=== PATIENT | female | born 1945 | race Caucasian/White ===

== ENCOUNTER 2016-12-26 09:11 | Inpatient (IN) | payer MEDICARE, MEDICAID ==
[~2016-12-26] VITALS: Ht 167.6 cm; Wt 72.6 kg
[2016-12-26 08:00] VITALS: BP 128/73
[~2016-12-26 09:11] MED LIST: BUSP5TAB3 PO; DEXL60CA3 PO; DILT240C88 PO; ESCI10TA PO; IBUP-1955 PO; LORA1TAB82 PO; MEMA10TA PO; OLME1TAB28 PO; RIVA10TA PO; ROSU10TA PO
--- NOTE | 2016-12-26 09:16 | NUR ---
[id number] FROM HOME: PALPITATIONS, TACHYCARDIA, NAD NOTED, VSS, SKIN WARM AND DRY, RESP EVEN AND UNLABORED, AA0 X4, PUT PT ON MONITOR AND MONITOR, MD AT BS FOR EVAL.
[2016-12-26] MEDS ORDERED: LORAZEPAM INJ 2 MG/ML VIAL ONE (09:21)
[2016-12-26] MEDS ORDERED: DILTIAZEM HCL 25 MG IV ONE (09:21)
[2016-12-26] MEDS ORDERED: DILTIAZEM HCL IV 125 MG in IV D5W 100 ML IV ONE (09:30)
[2016-12-26] MEDS ORDERED: IV NS 0.9% 500 ML BAG IV ONE (09:30)
[2016-12-26] MEDS ORDERED: LORAZEPAM INJ 2 MG/ML VIAL IV ONE (09:30)
[2016-12-26] MEDS ORDERED: DILTIAZEM HCL 25 MG IV IVP ONE (09:30)
[2016-12-26 09:41] LABS: BASOPHILS % (AUTO) 0.8 % (0.0-2.0); EOSINOPHILS # (AUTO) 0.1 /CMM (0.0-0.7); HEMATOCRIT 40 % (33-45); HEMOGLOBIN 13.5 g/dL (11.5-14.8); LYMPHOCYTES # (AUTO) 1.8 /CMM (0.8-4.8); LYMPHOCYTES % (AUTO) 37.8 % (20.0-44.0); MEAN CORPUSCULAR HEMOGLOBIN 29 PG (26.0-33.0); MEAN CORPUSCULAR HGB CONC 34 g/dl (31.0-36.0); MEAN CORPUSCULAR VOLUME 85 fL (82-100); MONOCYTES # (AUTO) 0.2 /CMM (0.1-1.30); MONOCYTES % (AUTO) 5.1 % (2.0-12.0); NEUTROPHILS # (AUTO) 2.5 /CMM (1.8-8.9); NEUTROPHILS % (AUTO) 54.3 % (43.0-81.0); PLATELET COUNT (AUTO) 179 /CMM (150-450); RDW COEFFICIENT OF VARIATION 15.4 (11.5-15.0); RED BLOOD CELL COUNT(AUTO) 4.72 MIL/uL (4.0-5.2); WHITE BLOOD COUNT (AUTO) 4.7 K/uL (4.3-11.0)
[2016-12-26 09:51] LABS: CREATININE 0.8 mg/dL (0.6-1.3); POTASSIUM 3.5 mmol/L (3.5-5.1)
[2016-12-26 09:59] LABS: TROPONIN I 0.344 ng/mL (0.00-0.056)
[2016-12-26 10:09] LABS: INR 1.07 (0.87-1.13); PROTHROMBIN TIME 11.1 SECS (9.5-12.7)
--- NOTE | 2016-12-26 10:11 | NUR ---
PAGED DR SOLIS FOR ADMISSION
[2016-12-26] MEDS ORDERED: ASPIRIN 325 MG TABLET ONE (10:12)
[2016-12-26] MEDS ORDERED: ASPIRIN 325 MG TABLET PO ONE (10:30)
[2016-12-26] MEDS: busPIRone 5 MG TABLET PO SCH (11:30)
[2016-12-26] MEDS: ESCITALOPRAM OXALATE (10 MG) 10 MG TABLET PO SCH (11:30)
[2016-12-26] MEDS ORDERED: LORAZEPAM 1 MG TABLET PO PRN (11:30)
[2016-12-26] MEDS: DRONEDARONE HYDROCHLORIDE 400 MG TABLET PO SCH ×2 (11:30→17:27)
--- NOTE | 2016-12-26 11:35 | NUR ---
RN INITIAL NOTES PATIENT RECEIVED FROM ER. NO SOB OR DISTRESS NOTED AT THIS TIME. PATIENT DENIES CHEST OR GENERAL PAIN AT THIS TIME. PATIENT ORIENTED TO ROOM AND CALL LIGHT. BELONGINGS CHECKED AND ACCOUNTED FOR. HEART RATE ST 103 WITH BBB. BED IN A LOW POSITION, CALL LIGHT WITHIN PATIENT REACH. WILL CONTINUE TO MONITOR.
[2016-12-26] MEDS: MEMANTINE HCL 5 MG TABLET PO SCH (11:41)
[2016-12-26] MEDS: PANTOPRAZOLE 40 MG TABLET.DR PO SCH (11:58)
--- NOTE | 2016-12-26 11:59 | NUR ---
RN NOTES PT STATES "I ONLY WANT BLOOD PRESSURE MEDS NOW. THE REST TOMORROW." PT ALSO STATES SHE TOOK HER MORNING MEDICATIONS AND XARALTO. HOLDING ALL NON BP MEDS.
[2016-12-26 12:00] VITALS: BP_SYST 127; BP_SYST 141; BP_DIAS 77; BP_DIAS 78
[2016-12-26] MEDS: DILTIAZEM HCL CD 240 MG PO SCH (12:00)
[2016-12-26] MEDS: METOPROLOL TARTRATE 50 MG TABLET PO SCH ×2 (12:00→17:27)
[2016-12-26 12:43] LABS: THYROID STIMULATING HORMONE 0.807 uIU/mL (0.358-3.74)
[2016-12-26] MEDS ORDERED: NITROGLYCERIN 0.4 MG/TAB BOTTLE SL PRN (13:00)
[2016-12-26] MEDS ORDERED: MAG HYDROX/AL HYDROX/SIMETH 30 ML UDC PO PRN (13:00)
[2016-12-26] MEDS ORDERED: Z GUARD REMEDY 2 OZ OINT TP PRN (13:00)
[2016-12-26] MEDS ORDERED: ZOLPIDEM TARTRATE 5 MG TABLET PO PRN (13:00)
[2016-12-26] MEDS ORDERED: MAGNESIUM HYDROXIDE 30 ML UDC PO PRN (13:00)
[2016-12-26] MEDS ORDERED: HYDROCODONE/APAP 5/325MG 1 EACH TABLET PO PRN (13:00)
[2016-12-26] MEDS ORDERED: ONDANSETRON HCL/PF 4 MG/2 ML VIAL IVP PRN (13:00)
[2016-12-26] MEDS ORDERED: ACETAMINOPHEN 325 MG TABLET PO PRN (13:00)
[2016-12-26] MEDS ORDERED: MORPHINE SULFATE INJ 2 MG/ML DISP.SYRIN IV PRN (13:00)
[2016-12-26 13:17] LABS: MAGNESIUM 1.9 mg/dL (1.8-2.4)
[2016-12-26 16:00] VITALS: BP 118/80
[2016-12-26] MEDS ORDERED: RIVAROXABAN 10 MG TABLET PO SCH (17:00)
--- NOTE | 2016-12-26 19:04 | NUR ---
RN CLOSING NOTES NO SIGNIFICANT CHANGES IN PATIENT CONDITION THROUGHOUT THE SHIFT. NO SOB OR DISTRESS NOTED AT THIS TIME. PATIENT DENIES PAIN. HEART RATE SR IN THE 90'S WITH BBB. BED IN A LOW POSITION, CALL LIGHT WITHIN PATIENT REACH. WILL ENDORSE FOR SUSAN.
--- NOTE | 2016-12-26 19:30 | NUR ---
RN NOTE; RECEIVED PT IN BED AWAKE AND ALERT, BREATHING EVENLY. NO SOB. NAD. SKIN WARM AND DRY. NO C/O PAIN OR DISCOMFORT. NO CP. SR W/ 1ST DEGREE AV BLOCK ON TELE MONITOR, NEEDS ATTENDED .BED LOW LOCKED. CALL LIGHT WITHIN REACH. WILL CONT TO MONITOR .
[2016-12-26 20:00] VITALS: BP 97/64
[2016-12-26] MEDS ORDERED: Medication Not On Formulary EA (Rosuvastatin Calcium (Crestor) 10 MG) PO SCH (22:00)
[2016-12-26] MEDS ORDERED: ATORVASTATIN 10 MG TABLET PO SCH (22:00)
[2016-12-26 23:54] VITALS: BP 107/63
[2016-12-27] VITALS: BP 107/63
[2016-12-27] MEDS: METOPROLOL TARTRATE 50 MG TABLET PO SCH ×2 (00:14→05:52)
[2016-12-27 04:00] VITALS: BP 139/82
--- NOTE | 2016-12-27 06:15 | NUR ---
RN NOTE; PT IN BED AWAKE AND RESPONSIVE. BREATHING EVENLY. NO SOB. NAD. NO ACUTE EVENT DURING THE NIGHT. ON ONGOING HEART MONITORING . READING SR W/1ST DEGREE AV BLOCK. NO C/O PAIN OR DISCOMFORT. DENIED CHEST PAIN. NEEDS ATTENDED. ASSISTED W/ ADLS. CALL LIGHT WITHIN REACH. WILL CONT TO MONITOR AND WILL ENDORSE TO AM SHIFT FOR SUSAN.
[2016-12-27 06:33] LABS: BASOPHILS # (AUTO) 0.1 /CMM (0.0-0.2); EOSINOPHILS # (AUTO) 0.2 /CMM (0.0-0.7); EOSINOPHILS % (AUTO) 3.5 % (0.0-6.0); HEMATOCRIT 37 % (33-45); HEMOGLOBIN 12.6 g/dL (11.5-14.8); LYMPHOCYTES # (AUTO) 2.4 /CMM (0.8-4.8); LYMPHOCYTES % (AUTO) 43.3 % (20.0-44.0); MEAN CORPUSCULAR HEMOGLOBIN 29 PG (26.0-33.0); MEAN CORPUSCULAR HGB CONC 34 g/dl (31.0-36.0); MEAN CORPUSCULAR VOLUME 86 fL (82-100); MONOCYTES # (AUTO) 0.4 /CMM (0.1-1.30); MONOCYTES % (AUTO) 6.5 % (2.0-12.0); NEUTROPHILS # (AUTO) 2.5 /CMM (1.8-8.9); NEUTROPHILS % (AUTO) 45.7 % (43.0-81.0); PLATELET COUNT (AUTO) 191 /CMM (150-450); RDW COEFFICIENT OF VARIATION 15.4 (11.5-15.0); RED BLOOD CELL COUNT(AUTO) 4.32 MIL/uL (4.0-5.2); WHITE BLOOD COUNT (AUTO) 5.4 K/uL (4.3-11.0)
[2016-12-27 06:50] LABS: ALBUMIN 3.6 g/dL (3.4-5.0); BILIRUBIN,TOTAL 0.4 mg/dL (0.2-1.0); CALCIUM, SERUM 9.5 mg/dL (8.5-10.1); CREATININE 0.8 mg/dL (0.6-1.3); PHOSPHORUS 3.9 mg/dL (2.5-4.9); POTASSIUM 3.5 mmol/L (3.5-5.1)
[2016-12-27 06:53] LABS: TROPONIN I 0.266 ng/mL (0.00-0.056)
--- NOTE | 2016-12-27 07:55 | NUR ---
INSERTER OPERATOR OPENING NOTE PATIENT IS ALERT AND ORIENTED x4. NO PAIN AT THIS TIME. NO SOB OR DISTRESS NOTED. CALL LIGHT WITHIN REACH. SAFETY MEASURES IMPLEMENTED. ABLE TO COMMUNICATE NEEDS. TELE MONITOR-SR WITH 1 DEGREE AV BLOCK. AMBULATORY WITH ASSISTANCE. CARDIAC DIET. LEFT HAND INTACT AND PATENT NO REDNESS NO SWELLING NOTED. PENDING LABS THIS MORNING. AWAITING PHYSICAL THERAPY EVALUATION. WILL CONTINUE TO MONITOR
[2016-12-27 08:00] VITALS: BP 105/61
[2016-12-27] MEDS: ESCITALOPRAM OXALATE (10 MG) 10 MG TABLET PO SCH (08:48)
[2016-12-27] MEDS: busPIRone 5 MG TABLET PO SCH (08:48)
[2016-12-27] MEDS: PANTOPRAZOLE 40 MG TABLET.DR PO SCH (08:48)
[2016-12-27] MEDS: MEMANTINE HCL 5 MG TABLET PO SCH (08:48)
[2016-12-27] MEDS: DILTIAZEM HCL CD 240 MG PO SCH (08:50)
[2016-12-27] MEDS: DRONEDARONE HYDROCHLORIDE 400 MG TABLET PO SCH (08:57)
[2016-12-27] MEDS ORDERED: RIVAROXABAN 10 MG TABLET PO SCH (09:00)
[2016-12-27] MEDS ORDERED: ASPIRIN EC 81 MG TABLET.DR PO SCH (09:00)
[2016-12-27] MEDS ORDERED: HCTZ PO SCH (09:00)
[2016-12-27] MEDS ORDERED: AMLODIPINE PO SCH (09:00)
[2016-12-27] MEDS ORDERED: OLMESARTAN MED PO SCH (09:00)
--- NOTE | 2016-12-27 12:38 | NUR ---
CHEMISTRY INSTRUCTOR NOTE PATIENT IS ALERT AND ORIENTED x4. NO PAIN AT THIS TIME. NO SOB OR DISTRESS NOTED. CALL LIGHT WITHIN REACH AT ALL TIMES. SAFETY MEASURES IMPLEMENTED. ABLE TO COMMUNICATE NEEDS. AMBULATORY WITH ASSISTANCE. LEAVING TO HOME WITH FAMILY VIA PRIVATE CAR. ALL BELONGINGS WITH PATIENT UPON DISCHARGE AND ACCOUNTED FOR. IV REMOVED, SKIN INTACT. FOLLOW UP APPOINTMENT AT [facility] ON 01/03/17 AT 12:45. TO FOLLOW UP WITH DR. MCDONALD OUTPATIENT. ALL DISCHARGE INSTRUCTIONS GIVEN TO PATIENT, PATIENT ABLE TO RETURN VERBALIZATION FOR DISCHARGE INSTRUCTIONS. PATIENT REFUSED PNEUMONIA AND FLU VACCINE.
== END 2016-12-27 12:30 | disposition home or self-care (01) | DRG 281 ==
LOC: ER 09:13 → TELE 11:20
DX: I48.91 Unspecified atrial fibrillation (principal); I21.4 Non-ST elevation (NSTEMI) myocardial infarction; D68.59 Other primary thrombophilia; I10 Essential (primary) hypertension; F41.9 Anxiety disorder, unspecified; E78.5 Hyperlipidemia, unspecified; K21.9 Gastro-esophageal reflux disease without esophagitis; Z88.0 Allergy status to penicillin; Z79.01 Long term (current) use of anticoagulants
CPT/HCPCS: 36415; 71010-TC; 80048-TC; 80053-TC; 80061-TC; 82306; 83735-TC; 84100-TC; 84439-TC; 84443-TC; 84484-TC; 85025-TC; 85730-TC; 87081-TC; 93307-TC; J2060; J3490; J7060

== ENCOUNTER 2017-01-03 12:51 | Outpatient (CLI) | payer MEDICARE, MEDICAID ==
[2017-01-03 12:37] VITALS: BP 115/78
[~2017-01-03 12:51] MED LIST changes: +LORA-259 PO; -LORA1TAB82 PO
== END 2017-01-03 23:59 | disposition home or self-care (01) ==
LOC: MSC 12:51
PROVIDERS: ATTEND Internal Medicine
DX: I48.0 Paroxysmal atrial fibrillation (principal); I10 Essential (primary) hypertension; K21.9 Gastro-esophageal reflux disease without esophagitis; F32.9 Major depressive disorder, single episode, unspecified; F41.9 Anxiety disorder, unspecified; E78.5 Hyperlipidemia, unspecified; M19.90 Unspecified osteoarthritis, unspecified site; Z79.899 Other long term (current) drug therapy; Z95.2 Presence of prosthetic heart valve

== ENCOUNTER 2017-02-07 21:32 | Inpatient (IN) | payer MEDICARE, MEDICAID ==
[~2017-02-07] VITALS: Ht 167.6 cm; Wt 74.8 kg
--- NOTE | 2017-02-07 21:35 | NUR ---
TO BED 2 A 71 YO FEMALE PATIENT BB RA89 FROM HOME. "SHAKING & FLU SINCE THIS MORNING." PATIENT ALSO COMPLAINTS OF CHEST PRESSURE ABOUT 1.5 HOURS CORE PASTER. PATIENT IS AAOX4, NAD NOTED. VSS. PLACED ON CARDIAC AND VS MONITORING. GOWNED. COMFORT MEASURES RENDERED.
[2017-02-07] MEDS ORDERED: ASPIRIN 81 MG TAB.CHEW ONE (22:22)
[2017-02-07] MEDS ORDERED: ASPIRIN 325 MG TABLET PO ONE (22:30)
--- NOTE | 2017-02-07 22:35 | NUR ---
started a saline lock on the rac g18, blood drawn and sent to lab.
[2017-02-07 22:53] LABS: BASOPHILS % (AUTO) 0.8 % (0.0-2.0); EOSINOPHILS # (AUTO) 0.1 /CMM (0.0-0.7); EOSINOPHILS % (AUTO) 1.5 % (0.0-6.0); HEMATOCRIT 34 % (33-45); HEMOGLOBIN 11.8 g/dL (11.5-14.8); LYMPHOCYTES # (AUTO) 1.9 /CMM (0.8-4.8); LYMPHOCYTES % (AUTO) 36.2 % (20.0-44.0); MEAN CORPUSCULAR HEMOGLOBIN 30 PG (26.0-33.0); MEAN CORPUSCULAR HGB CONC 35 g/dl (31.0-36.0); MEAN CORPUSCULAR VOLUME 87 fL (82-100); MONOCYTES # (AUTO) 0.3 /CMM (0.1-1.30); MONOCYTES % (AUTO) 5.6 % (2.0-12.0); NEUTROPHILS # (AUTO) 2.9 /CMM (1.8-8.9); NEUTROPHILS % (AUTO) 55.9 % (43.0-81.0); PLATELET COUNT (AUTO) 174 /CMM (150-450); RDW COEFFICIENT OF VARIATION 15.4 (11.5-15.0); RED BLOOD CELL COUNT(AUTO) 3.92 MIL/uL (4.0-5.2); WHITE BLOOD COUNT (AUTO) 5.1 K/uL (4.3-11.0)
[2017-02-07 23:05] LABS: CALCIUM, SERUM 9.4 mg/dL (8.5-10.1); CREATININE 0.9 mg/dL (0.6-1.3); POTASSIUM 3.3 mmol/L (3.5-5.1)
[2017-02-07 23:10] LABS: INR 1.28 (0.87-1.13); PROTHROMBIN TIME 13.3 SECS (9.5-12.7)
[2017-02-07 23:14] LABS: TROPONIN I 0.044 ng/mL (0.00-0.056)
[2017-02-07] MEDS ORDERED: POTASSIUM CHLORIDE 20 MEQ TAB.PRT.SR PO ONE ×2 (23:30)
--- NOTE | 2017-02-07 23:39 | NUR ---
PT ASSIGNED TO 116-2
[2017-02-07] MEDS ORDERED: IV NS 0.9% 1,000 ML IV PRN (23:41)
[2017-02-08] MEDS ORDERED: Z GUARD REMEDY 2 OZ OINT TP PRN
[2017-02-08] MEDS ORDERED: HYDROCODONE/APAP 5/325MG 1 EACH TABLET PO PRN
[2017-02-08] MEDS ORDERED: MAGNESIUM HYDROXIDE 30 ML UDC PO PRN
[2017-02-08] MEDS ORDERED: ZOLPIDEM TARTRATE 5 MG TABLET PO PRN
[2017-02-08] MEDS ORDERED: ACETAMINOPHEN 325 MG TABLET PO PRN
[2017-02-08] MEDS ORDERED: LORAZEPAM 1 MG TABLET PO PRN
[2017-02-08] MEDS ORDERED: ONDANSETRON HCL/PF 4 MG/2 ML VIAL IVP PRN
[2017-02-08] MEDS ORDERED: MAG HYDROX/AL HYDROX/SIMETH 30 ML UDC PO PRN
--- NOTE | 2017-02-08 00:19 | NUR ---
Report given to Carlos GALEANO for admission and fausto.
[2017-02-08 00:30] VITALS: BP 120/74
[2017-02-08] MEDS ORDERED: busPIRone 5 MG TABLET ONE (00:32)
--- NOTE | 2017-02-08 00:33 | NUR ---
Transferred patient to tele floor via als protocol, no incident noted.
[2017-02-08 00:43] VITALS: BP 120/74
--- NOTE | 2017-02-08 00:58 | NUR ---
TELE 1 RN NOTE ADMITTED 71 YEARS OLD FEMALE FROM ER WITH THE DX OF NSTEMI, WEAKNESS AND ANXIETY BY DR SOLIS. PT IS A/A/O X 3, NO SOB, NO DISTRESS OR DISCOMFORT NOTED. DENIES PAIN. HANGED IVF NS @ 75 ML/HR, NO S/S OF INFILTRATION NOTED RAC # 18 G. ON TELE SR HR 72. ADMITTING ORDERS CHECKED. ORIENTED THE PT TO HER ROOM. SKIN INTACT. SIDE RAILS UP X 2 AND CALL LIGHT WITHIN REACH VSS. CONTINUE TO MONITOR HER.
[2017-02-08] MEDS: busPIRone 5 MG TABLET PO SCH ×3 (01:00→08:17)
[2017-02-08 04:00] VITALS: BP_SYST 149; BP_SYST 97; BP_DIAS 59; BP_DIAS 62
--- NOTE | 2017-02-08 06:45 | NUR ---
HEALTH AND SAFETY TECH NOTES PATIENT IN BED ASLEEP OBTUNDED, ON TELE SINUS RHYTHM WITH BBB HR 60 ON THE MONITOR, TRACH INTACT, ON VENT. JOANNA MIDLINE, IVF NS INFUSING AT 75ML/ HR. ON TELE SR HR 75. KEPT HER DRY CLEAN. ALL SIDE RAILS UP X2. WILL CONT TO MONITOR.
[2017-02-08 07:23] LABS: CALCIUM, SERUM 9.4 mg/dL (8.5-10.1); CREATININE 0.7 mg/dL (0.6-1.3); MAGNESIUM 1.9 mg/dL (1.8-2.4); PHOSPHORUS 3.2 mg/dL (2.5-4.9); POTASSIUM 3.5 mmol/L (3.5-5.1)
--- NOTE | 2017-02-08 07:44 | NUR ---
REST ROOM MATRON NOTES RECEIVED PT ON BED A/O X 4, NAUSEATED. ON RA TOLERATING WELL. NO SIN OF DISTRESS. IV ACCESS RAC #18 NO SIGN OF INFILTRATION. NS RUNNING @ 75CC/HR INFUSING WELL. HEAD OF BED ELEVATED. SIDE RAILS UP. WILL CONTINUE TO MONITOR PT CLOSELY.
[2017-02-08 07:58] LABS: BASOPHILS % (AUTO) 0.6 % (0.0-2.0); EOSINOPHILS # (AUTO) 0.1 /CMM (0.0-0.7); EOSINOPHILS % (AUTO) 2.5 % (0.0-6.0); HEMATOCRIT 33 % (33-45); HEMOGLOBIN 11.5 g/dL (11.5-14.8); LYMPHOCYTES # (AUTO) 2.4 /CMM (0.8-4.8); LYMPHOCYTES % (AUTO) 50.3 % (20.0-44.0); MEAN CORPUSCULAR HEMOGLOBIN 30 PG (26.0-33.0); MEAN CORPUSCULAR HGB CONC 35 g/dl (31.0-36.0); MEAN CORPUSCULAR VOLUME 86 fL (82-100); MONOCYTES # (AUTO) 0.3 /CMM (0.1-1.30); MONOCYTES % (AUTO) 5.8 % (2.0-12.0); NEUTROPHILS % (AUTO) 40.8 % (43.0-81.0); PLATELET COUNT (AUTO) 155 /CMM (150-450); RDW COEFFICIENT OF VARIATION 14.7 (11.5-15.0); RED BLOOD CELL COUNT(AUTO) 3.86 MIL/uL (4.0-5.2); WHITE BLOOD COUNT (AUTO) 4.8 K/uL (4.3-11.0)
[2017-02-08 08:00] VITALS: BP 123/91
[2017-02-08] MEDS ORDERED: LOSARTAN POTASSIUM 25 MG TABLET PO SCH (09:00)
[2017-02-08] MEDS ORDERED: DILTIAZEM HCL CD 240 MG PO SCH (09:00)
[2017-02-08] MEDS ORDERED: MEMANTINE HCL 5 MG TABLET PO SCH (09:00)
[2017-02-08] MEDS ORDERED: ESCITALOPRAM OXALATE (10 MG) 10 MG TABLET PO SCH (09:00)
--- NOTE | 2017-02-08 09:32 | NUR ---
EARLY CHILDHOOD AIDE CLASSROOM NOTES PT REFUSED LOSARTAN AND MEMANTINE. EXPLAINED THE RISK AND BENEFITS OF THE DRUG.
--- NOTE | 2017-02-08 11:41 | NUR ---
PLANT HEALTH CARE TECHNICIAN NOTES PT ORIENTED, EXPLAINED THE AMA THE RISK AND BENEFITS OF IT. INFORMED THE PHYSICIAN ABOUT THE AMA. INFORMED THE CHARGE NURSE. PT BAND REMOVED. IV ACCESS REMOVED . TELE MONITOR REMOVED . CHECKED THE VITAL SIGNS BEFORE SHE LEAVE.
[2017-02-08 12:00] VITALS: BP 116/60
[2017-02-08] MEDS ORDERED: RIVAROXABAN 10 MG TABLET PO SCH (17:00)
[2017-02-08] MEDS ORDERED: ATORVASTATIN 10 MG TABLET PO SCH (22:00)
== END 2017-02-08 12:30 | disposition left against medical advice (07) | DRG 310 ==
LOC: ER 21:35 → TELE-TD 23:52 → TELE1 02-08 00:21
DX: I48.91 Unspecified atrial fibrillation (principal); E78.5 Hyperlipidemia, unspecified; F41.9 Anxiety disorder, unspecified; I10 Essential (primary) hypertension; K21.9 Gastro-esophageal reflux disease without esophagitis; E87.6 Hypokalemia; Z79.01 Long term (current) use of anticoagulants; Z88.0 Allergy status to penicillin; R78.89 Finding of other specified substances, not normally found in blood
CPT/HCPCS: 36415; 71010-TC; 80048-TC; 83735-TC; 84100-TC; 84484-TC; 85025-TC; 85730-TC; 87081-TC; A4606; J2405; J7030; Z7610

== ENCOUNTER 2018-02-25 10:22 | Emergency (ER) | payer MEDICARE, MEDICAID ==
[~2018-02-25] VITALS: Ht 162.6 cm; Wt 73.9 kg
[~2018-02-25 10:22] MED LIST changes: -ROSU10TA PO; +ROSU10TA2 PO
--- NOTE | 2018-02-25 10:26 | NUR ---
BIB RA 72 YEAR OLD FEMALE FROM HOME C/O HEART PALPITATION, GENERALIZED WEAKNESS X 2 WEEKS. PATIENT STATED SEEN AT [facility] YESTERDAY FOR SAME REASON, THEN D/C HOME. ALERT AND OREINTED X4, BREATHING EVEN AND UNLABORED WITH NO DISTRESS NOTED. SKIN WARM TO TOUCH AND INTACT. AWAITING TO BE SEEN BY .
[2018-02-25 11:09] LABS: BASOPHILS % (AUTO) 0.7 % (0.0-2.0); EOSINOPHILS % (AUTO) 0.8 % (0.0-6.0); HEMATOCRIT 39 % (33-45); LYMPHOCYTES # (AUTO) 1.6 /CMM (0.8-4.8); LYMPHOCYTES % (AUTO) 23.2 % (20.0-44.0); MEAN CORPUSCULAR HGB CONC 34 g/dl (31.0-36.0); MEAN CORPUSCULAR VOLUME 87 fL (82-100); MONOCYTES # (AUTO) 0.3 /CMM (0.1-1.30); MONOCYTES % (AUTO) 5.1 % (2.0-12.0); NEUTROPHILS # (AUTO) 4.7 /CMM (1.8-8.9); NEUTROPHILS % (AUTO) 70.2 % (43.0-81.0); PLATELET COUNT (AUTO) 196 /CMM (150-450); RED BLOOD CELL COUNT(AUTO) 4.41 MIL/uL (4.0-5.2); WHITE BLOOD COUNT (AUTO) 6.7 K/uL (4.3-11.0)
[2018-02-25] MEDS ORDERED: METOPROLOL TARTRATE INJ 5 MG/5 ML AMPUL ONE (11:11)
[2018-02-25 11:21] LABS: CALCIUM, SERUM 9.3 mg/dL (8.5-10.1); CARBON DIOXIDE 29 mmol/L (21-32); CHLORIDE 102 mmol/L (98-107); CREATININE 0.9 mg/dL (0.6-1.3); GLUCOSE 148 mg/dL (74-106); POTASSIUM 3.1 mmol/L (3.5-5.1); SODIUM SERUM 140 mmol/L (136-145); UREA NITROGEN, BLOOD 24 mg/dL (7-18)
--- NOTE | 2018-02-25 11:26 | NUR ---
PATIENT VS ARE STABLE WILL CONTINUE TO MONITOR
[2018-02-25] MEDS ORDERED: METOPROLOL TARTRATE INJ 5 MG/5 ML AMPUL IVP ONE (11:30)
[2018-02-25 11:33] LABS: B-TYPE NATRIURETIC PEPTIDE 810 PG/ML (0-125)
[2018-02-25] MEDS ORDERED: ASPI-1169 PO (12:19)
[2018-02-25] MEDS ORDERED: RIVA10TA PO (12:19)
[2018-02-25] MEDS ORDERED: OMEP20TA20 PO (12:20)
[2018-02-25] MEDS ORDERED: METO25TA6 PO (12:20)
--- NOTE | 2018-02-25 12:40 | NUR ---
PATIENT REMAINS STABLE AT THIS TIME. NO DISTRESS NOTED.
--- NOTE | 2018-02-25 13:20 | NUR ---
Patient discharged to home in stable condition. Written and verbal after care instructions given. Patient verbalizes understanding of instruction. IV removed. Catheter intact and site benign. Pressure and 4x4 applied to site. No bleeding noted.
[2018-02-25 13:56] VITALS: BP 110/70
[2018-04-01] MEDS ORDERED: ASPI-1169 PO (10:57)
[2018-04-01] MEDS ORDERED: ROSU10TA2 PO (10:57)
== END 2018-02-25 13:57 | disposition home or self-care (01) ==
LOC: ER 10:25
DX: I48.91 Unspecified atrial fibrillation (principal); I10 Essential (primary) hypertension; K21.9 Gastro-esophageal reflux disease without esophagitis; F41.9 Anxiety disorder, unspecified; Z98.890 Other specified postprocedural states; Z88.0 Allergy status to penicillin; Z79.82 Long term (current) use of aspirin; Z79.01 Long term (current) use of anticoagulants; Z79.899 Other long term (current) drug therapy
CPT/HCPCS: 36415; 71045; 80048; 83880; 84484; 85025; 85730; 93005; 96374; 99284; A4606; J3490

== ENCOUNTER 2018-03-05 10:04 | Emergency (ER) | payer MEDICARE, MEDICAID ==
[~2018-03-05] VITALS: Ht 160 cm; Wt 74.4 kg
[~2018-03-05 10:04] MED LIST changes: +ASPI-1169 PO; -BUSP5TAB3 PO; -DEXL60CA3 PO; -DILT240C88 PO; -ESCI10TA PO; -MEMA10TA PO; +METO25TA6 PO; +OMEP20TA20 PO
--- NOTE | 2018-03-05 10:10 | NUR ---
AAOX3, BIBA RA 60 From Home Multiple complaints "SCOTT/Dizzy/Shakiness/Anxiety since 4am was seen in [place] and recently". SKIN IS WARM AND DRY. PLACED ON THE MONITOR. DR NOVAK AT FOR BRIAN.
[2018-03-05 10:23] LABS: BASOPHILS # (AUTO) 0.1 /CMM (0.0-0.2); BASOPHILS % (AUTO) 1.1 % (0.0-2.0); EOSINOPHILS % (AUTO) 3.3 % (0.0-6.0); HEMATOCRIT 37 % (33-45); HEMOGLOBIN 12.3 g/dL (11.5-14.8); LYMPHOCYTES # (AUTO) 2.1 /CMM (0.8-4.8); LYMPHOCYTES % (AUTO) 38.7 % (20.0-44.0); MEAN CORPUSCULAR HGB CONC 33 g/dl (31.0-36.0); MEAN CORPUSCULAR VOLUME 88 fL (82-100); MONOCYTES # (AUTO) 0.3 /CMM (0.1-1.30); MONOCYTES % (AUTO) 5.6 % (2.0-12.0); NEUTROPHILS # (AUTO) 2.8 /CMM (1.8-8.9); NEUTROPHILS % (AUTO) 51.3 % (43.0-81.0); PLATELET COUNT (AUTO) 185 /CMM (150-450); WHITE BLOOD COUNT (AUTO) 5.5 K/uL (4.3-11.0)
[2018-03-05] MEDS ORDERED: OMEP40CA37 PO (10:40)
[2018-03-05 10:48] LABS: CALCIUM, SERUM 9.9 mg/dL (8.5-10.1); CARBON DIOXIDE 27 mmol/L (21-32); CHLORIDE 103 mmol/L (98-107); CREATININE 0.9 mg/dL (0.6-1.3); GLUCOSE 152 mg/dL (74-106); POTASSIUM 3.1 mmol/L (3.5-5.1); SODIUM SERUM 139 mmol/L (136-145); UREA NITROGEN, BLOOD 15 mg/dL (7-18)
[2018-03-05 10:53] LABS: ALANINE AMINOTRANSFERASE 49 U/L (12-78); ALBUMIN 4.4 g/dL (3.4-5.0); ALKALINE PHOSPHATASE 209 U/L (46-116); ASPARTATE AMINOTRANSFERASE 20 U/L (15-37); BILIRUBIN,DIRECT 0.1 mg/dL (0.0-0.2); BILIRUBIN,TOTAL 0.3 mg/dL (0.2-1.0); TOTAL PROTEIN, SERUM 8.2 g/dL (6.4-8.2)
[2018-03-05] MEDS ORDERED: LORAZEPAM 0.5 MG TABLET PO ONE (11:30)
[2018-03-05] MEDS ORDERED: LORAZEPAM 0.5 MG TABLET ONE (12:02)
[2018-03-05 12:05] VITALS: BP 132/82
[2018-04-01] MEDS ORDERED: ROSU10TA2 PO (10:57)
[2018-04-01] MEDS ORDERED: ASPI-1169 PO (10:57)
== END 2018-03-05 12:06 | disposition home or self-care (01) ==
LOC: ER 10:09
DX: I48.91 Unspecified atrial fibrillation (principal); R51 Headache; I10 Essential (primary) hypertension; K21.9 Gastro-esophageal reflux disease without esophagitis; F41.9 Anxiety disorder, unspecified; Z95.818 Presence of other cardiac implants and grafts; Z88.0 Allergy status to penicillin; Z79.82 Long term (current) use of aspirin; Z79.899 Other long term (current) drug therapy
CPT/HCPCS: 36415; 70450-TC; 71045-TC; 80048-TC; 80076-TC; 84484-TC; 85025-TC; 85730-TC

== ENCOUNTER 2018-03-30 01:54 | Inpatient (IN) | payer MEDICARE, MEDICAID ==
[2018-03-30] VITALS (8 sets, daily range): BP systolic 103–139; BP diastolic 57–81
[~2018-03-30] VITALS: Ht 160 cm; Wt 72.6 kg
[~2018-03-30 01:54] MED LIST changes: -ASPI-1169 PO; -OMEP20TA20 PO; +OMEP40CA37 PO
--- NOTE | 2018-03-30 04:17 | NUR ---
METAL SPRAYER: [facility] ACCOMPANIED BY 2 fiber glass worker AND RN BY [facility] AMBULANCE. PER REPORT, PT CALLED 911 FROM HOME D/T EPISODE OF ANXIETY AND COMPLAINED OF LT. SIDE WEAKNESS. STROKE WORK-UP DONE FROM ANTHONY WT UNREMARKABLE CT RESULT, LABS WNL EXCEPT K=3.3 (REPLACED WT K-DUR 20MEQ X1 PO). WAS ALSO GIVEN ATIVAN 0.5MG VIA IV X 1 PER REPORT WT GOOD EFFECT. PT IS A/O X4, ON ROOM AIR WT NO ACUTE DISTRESS. NO C/O PAIN AT THIS TIME. NSR ON TELE MONITOR. AFEBRILE. COOPERATIVE AND PARTIAL SKIN CARE RENDERED. LEFT AC IV SITE INTACT AND SALINE LOCKED. HOB AT 35 DEGREES. SAFETY PRECAUTION NOTED. CALL LIGHT KEPT WITHIN REACH. PAGED DNP PT SITTER FOR ADMISSION ORDERS.
[2018-03-30] MEDS ORDERED: HYDROCODONE/APAP 5/325MG 1 EACH TABLET PO PRN (05:30)
[2018-03-30] MEDS ORDERED: MAG HYDROX/AL HYDROX/SIMETH 30 ML UDC PO PRN (05:30)
[2018-03-30] MEDS ORDERED: ACETAMINOPHEN 325 MG TABLET PO PRN (05:30)
[2018-03-30] MEDS ORDERED: LORAZEPAM 1 MG TABLET PO PRN (05:30)
[2018-03-30] MEDS ORDERED: ONDANSETRON HCL/PF 4 MG/2 ML VIAL IVP PRN (05:30)
[2018-03-30] MEDS ORDERED: MAGNESIUM HYDROXIDE 30 ML UDC PO PRN (05:30)
[2018-03-30] MEDS ORDERED: Z GUARD REMEDY 2 OZ OINT TP PRN (05:30)
--- NOTE | 2018-03-30 06:15 | NUR ---
BILLBOARD POSTER HELPER: REFUSED AM BASELINE LABS AT THIS TIME AND SAID A LOT OF BLOOD WAS DRAWN TODAY FROM [place] AND SHE STILL FEELS WEAK. EXPLAINED RISKS AND BENEFITS BUT STILL REFUSED. ASKED BOARD MILL SUPERVISOR TO COME BACK LATER AND WILL ENDORSE TO DAY SHIFT. NO SUSAN AT THIS TIME. NO ACUTE DISTRESS, NO C/O PAIN. SAFETY PRECAUTION NOTED.
[2018-03-30] MEDS: METOPROLOL TARTRATE 25 MG TABLET PO SCH ×2 (08:52→16:04)
[2018-03-30] MEDS: PANTOPRAZOLE 40 MG TABLET.DR PO SCH (08:52)
[2018-03-30] MEDS ORDERED: AMLODIPINE PO SCH (09:00)
[2018-03-30] MEDS ORDERED: HCTZ PO SCH (09:00)
[2018-03-30] MEDS ORDERED: OLMESARTAN MED PO SCH (09:00)
[2018-03-30] MEDS: HYDROCHLOROTHIAZIDE 25 MG TABLET PO SCH (09:00)
[2018-03-30] MEDS: AMLODIPINE BESYLATE 5 MG TABLET PO SCH (09:00)
[2018-03-30] MEDS: LOSARTAN POTASSIUM 50 MG TABLET PO SCH (09:00)
[2018-03-30 09:27] LABS: BASOPHILS % (AUTO) 0.9 % (0.0-2.0); EOSINOPHILS % (AUTO) 1.4 % (0.0-6.0); HEMATOCRIT 35 % (33-45); HEMOGLOBIN 11.8 g/dL (11.5-14.8); LYMPHOCYTES # (AUTO) 1.8 /CMM (0.8-4.8); LYMPHOCYTES % (AUTO) 36.4 % (20.0-44.0); MEAN CORPUSCULAR HGB CONC 34 g/dl (31.0-36.0); MEAN CORPUSCULAR VOLUME 86 fL (82-100); MONOCYTES # (AUTO) 0.3 /CMM (0.1-1.30); MONOCYTES % (AUTO) 5.2 % (2.0-12.0); NEUTROPHILS # (AUTO) 2.8 /CMM (1.8-8.9); NEUTROPHILS % (AUTO) 56.1 % (43.0-81.0); PLATELET COUNT (AUTO) 182 /CMM (150-450); RED BLOOD CELL COUNT(AUTO) 4.06 MIL/uL (4.0-5.2)
[2018-03-30 09:28] LABS: CALCIUM, SERUM 9.5 mg/dL (8.5-10.1); CARBON DIOXIDE 28 mmol/L (21-32); CHLORIDE 103 mmol/L (98-107); CREATININE 0.6 mg/dL (0.6-1.3); GLUCOSE 104 mg/dL (74-106); MAGNESIUM 1.9 mg/dL (1.8-2.4); PHOSPHORUS 3.1 mg/dL (2.5-4.9); POTASSIUM 3.4 mmol/L (3.5-5.1); SODIUM SERUM 140 mmol/L (136-145); UREA NITROGEN, BLOOD 14 mg/dL (7-18)
[2018-03-30 09:39] LABS: THYROID STIMULATING HORMONE 0.339 uIU/mL (0.358-3.74)
--- NOTE | 2018-03-30 11:00 | NUR ---
RN NOTE PT TROPONIN LEVEL REPORTED TO DR CHEN, HE ORDERED TO CHECK IN Q6HX2, AND HE WILL TAKE CARE THE CARDIAC CONSULT. WILL CARRY OUT ORDERS. PT VS STABLE, DENIES PAIN.
--- NOTE | 2018-03-30 13:15 | NUR ---
RN NOTE PT TRANSFERRED TO 3WEST REPORT GIVEN TO WALESKA ELMORE FOR SUSAN.
--- NOTE | 2018-03-30 13:25 | NUR ---
TELE/RN OPENING NOTE THE PATIENT ALERT AND ORIENTED X4. IN ROOM AIR AND DENIES SOB. RESPIRATION REGULAR AND UNLABORED. DENIES PAIN. THE PATIENT IN NO APPARENT DISTRESS. EXTERNAL TELE BOX READING SR 62. LAC G 20 PATENT AND SALINE LOCKED. BED LOW AND LOCKED. SIDE RAILS UP X2. CALL LIGHT WITHIN REACH. WILL CONTINUE TO MONITOR.
[2018-03-30] MEDS ORDERED: POTASSIUM CHLORIDE 20 MEQ TAB.PRT.SR PO ONE (16:00)
[2018-03-30] MEDS: RIVAROXABAN 10 MG TABLET PO SCH (16:09)
--- NOTE | 2018-03-30 18:50 | NUR ---
MS/RN NOTE THE PATIENT ALERT AND ORIENTED X4. PATIENT IS IN ROOM AIR AND SATURATION IS AT 98%. DENIES SOB. RESPIRATION REGULAR AND UNLABORED. DENIES PAIN. THE PATIENT IN NO APPARENT DISTRESS. LAC G 20 PATENT AND SALINE LOCKED. TELE BOX READING SHOWING SR 75. BED LOW AND LOCKED. SIDE RAILS UP X3. CALL LIGHT WITHIN REACH. WILL ENDORSE TO SPECIAL OFFICER.
--- NOTE | 2018-03-30 19:45 | NUR ---
RN OPENING NOTES RECEIVED REPORT FROM DAYSHIFT RN CATARINA. FOUND Pt ASLEEP, RESTING IN BED. PER RERORT Pt IS IS A/OX4, VERBAL, ABLE TO MAKE NEEDS KNOWN. ON TELE MONITOR; READING SR 63. IV ACCESS ON LAC #20G, SL. NO S/S OF ACUTE DISTRESS OR SOB NOTED. RESPIRATIONS EVEN AND UNLABORED. SAFETY MEASURES IN PLACE. BED LOW, LOCKED, HOB ELEVATED, SIDE RAILS UP, CALL LIGHT AND BEDSIDE TABLE WITHIN REACH. WILL CONTINUE TO MONITOR Pt's CONDITION AND SAFETY THROUGHOUT THE NIGHT.
[2018-03-30] MEDS: ATORVASTATIN 10 MG TABLET PO SCH (21:50)
[2018-03-30] MEDS ORDERED: Medication Not On Formulary EA (Rosuvastatin Calcium (Crestor) 10 MG) PO SCH (22:00)
[2018-03-31 00:50] VITALS: BP 113/68
[2018-03-31 04:56] VITALS: BP 108/65
--- NOTE | 2018-03-31 06:38 | NUR ---
RN CLOSING NOTES NO SIGNIFICANT CHANGES IN Pt's CONDITION. Pt REMAINS ASLEEP IN BED. RESPIRATIONS EVEN AND UNLABORED. EASILY AWAKENED BY NAME. NO S/S OF ACUTE DISTRESS OR SOB NOTED DURING THE NIGHT. ALL NEEDS MET AND ATTENDED TO. SAFETY MEASURES IN PLACE. BED LOW, LOCKED, HOB ELEVATED, SIDE RAILS UP, CALL LIGHT AND BEDSIDE TABLE WITHIN REACH. WILL ENDORSE TO DAYSHIFT RN FOR Pt'S SUSAN. Addendum: 03/31/18 at 0639 by LAI WATKINS RN TELE READING 1ST DEGREE BLOCK WITH PVC's 60
[2018-03-31 07:09] LABS: BASOPHILS % (AUTO) 0.9 % (0.0-2.0); EOSINOPHILS % (AUTO) 3.7 % (0.0-6.0); HEMATOCRIT 37 % (33-45); HEMOGLOBIN 12.4 g/dL (11.5-14.8); LYMPHOCYTES # (AUTO) 2.2 /CMM (0.8-4.8); LYMPHOCYTES % (AUTO) 43.3 % (20.0-44.0); MEAN CORPUSCULAR HGB CONC 34 g/dl (31.0-36.0); MEAN CORPUSCULAR VOLUME 86 fL (82-100); MONOCYTES # (AUTO) 0.3 /CMM (0.1-1.30); MONOCYTES % (AUTO) 6.3 % (2.0-12.0); NEUTROPHILS # (AUTO) 2.3 /CMM (1.8-8.9); NEUTROPHILS % (AUTO) 45.8 % (43.0-81.0); PLATELET COUNT (AUTO) 182 /CMM (150-450); RED BLOOD CELL COUNT(AUTO) 4.24 MIL/uL (4.0-5.2)
[2018-03-31 07:30] LABS: CALCIUM, SERUM 9.5 mg/dL (8.5-10.1); CARBON DIOXIDE 27 mmol/L (21-32); CHLORIDE 105 mmol/L (98-107); CREATININE 0.8 mg/dL (0.6-1.3); GLUCOSE 102 mg/dL (74-106); POTASSIUM 3.8 mmol/L (3.5-5.1); SODIUM SERUM 143 mmol/L (136-145); UREA NITROGEN, BLOOD 19 mg/dL (7-18)
[2018-03-31 07:47] LABS: CHOLESTEROL 278 mg/dL (<200); HDL CHOLESTEROL 68 mg/dL (40-60); LDL 190 mg/dL (0-99); TRIGLYCERIDES 102 mg/dL (30-150)
--- NOTE | 2018-03-31 07:53 | NUR ---
E LEARNING DESIGNER NOTES PATIENT RESTING INSIDE ROOM. AWAKE, ALERT AND ORIENTED X 4, VERBALLY RESPONSIVE AND RESPONDS TO VERBAL AND TACTILE STIMULI. BREATHING EVEN AND UNLABORED. NO ACUTE DISTRESS NOTED AT TIS TIME. PATIENT CALM AND RELAXED. CONTINUE WITH TELEMETRY, SCHOOL PSYCHOLOGY SPECIALIST IN PLACE. RATE OF 75 WITH 1ST DEGREE BLOCK WITH PVCs. MD AWARE. AWAITING CARDIAC CONSULT, PATIENT NPO AT THIS TIME. EXPLAINED NPO STATUS TO PATIENT AND PATIENT VERBALIZED UNDERSTANDING. WILL CONTINUE TO MONITOR. BED LOCKED AND IN LOW POSITION. BILATERAL UPPER SIDE RAILS UP AND LOCKED. CALL LIGHT WITHIN EASY REACH
[2018-03-31 08:00] VITALS: BP 133/70
[2018-03-31] MEDS: METOPROLOL TARTRATE 25 MG TABLET PO SCH ×2 (09:38→16:44)
[2018-03-31] MEDS: LOSARTAN POTASSIUM 50 MG TABLET PO SCH (09:38)
[2018-03-31] MEDS: HYDROCHLOROTHIAZIDE 25 MG TABLET PO SCH (09:39)
[2018-03-31] MEDS: PANTOPRAZOLE 40 MG TABLET.DR PO SCH (09:39)
[2018-03-31] MEDS: AMLODIPINE BESYLATE 5 MG TABLET PO SCH (09:40)
[2018-03-31] MEDS: ASPIRIN 81 MG TAB.CHEW PO SCH (11:37)
[2018-03-31 16:00] VITALS: BP 108/70
[2018-03-31] MEDS: RIVAROXABAN 10 MG TABLET PO SCH (16:44)
--- NOTE | 2018-03-31 18:41 | NUR ---
MS RN NOTES PATIENT RESTING INSIDE ROOM. AWAKE, ALERT AND ORIENTED, VERBALLY RESPONSIVE AND RESPONDS TO VERBAL AND TACTILE STIMULI. BREATHING EVEN AND UNLABORED. NO CHANGES IN LOC NOTED AT THIS TIME. ALL NURSING NEEDS ATTENDED AND MET. WILL ENDORSE TO INCOMING SHIFT. BED LOCKED AND IN LOW POSITION. BILATERAL UPPER SIDE RAILS UP AND LOCKED. CALL LIGHT WITHIN EASY REACH
--- NOTE | 2018-03-31 19:55 | NUR ---
RN OPENING NOTES RECEIVED REPORT FROM OSEASMNFT RNMARCELL. FOUND Pt AWAKE, RESTING IN BED. FAMILY VISITING AT BEDSIDE. RESPIRATIONS EVEN AND UNLABORED. NO S/S OF ACUTE DISTRESS OR SOB NOTED. Pt IS A/OX4, VERBAL, ABLE TO MAKE NEEDS KNOWN. IV ACCESS ON LAC #20G, SL. SAFETY MEASURES IN PLACE. BED LOW, LOCKED, HOB ELEVATED, SIDE RAILS UP, CALL LIGHT AND BEDSIDE TABLE WITHIN REACH. WILL CONTINUE TO MONITOR Pt's CONDITION AND SAFETY THROUGHOUT THE NIGHT.
[2018-03-31 20:00] VITALS: BP 105/65
[2018-03-31] MEDS: ATORVASTATIN 10 MG TABLET PO SCH (23:05)
[2018-04-01] MEDS: PANTOPRAZOLE 40 MG TABLET.DR PO SCH (06:54)
--- NOTE | 2018-04-01 06:55 | NUR ---
RN CLOSING NOTES NO SIGNIFICANT CHANGES IN Pt's CONDITION. Pt REMAINS STABLE PER BASELINE. Pt IS AWAKE, RESTING IN BED. RESPIRATIONS EVEN AND UNLABORED. NO S/S OF ACUTE DISTRESS OR SOB NOTED DURING THE NIGHT. ALL NEEDS MET AND ATTENDED TO. SAFETY MEASURES IN PLACE. BED LOW, LOCKED, HOB ELEVATED, SIDE RAILS UP, CALL LIGHT AND BEDSIDE TABLE WITHIN REACH. WILL ENDORSE TO DAYSHIFT RN FOR Pt'S SUSAN.
--- NOTE | 2018-04-01 07:00 | NUR ---
Pt IS AWAKE, RESTING IN BED. RESPIRATIONS EVEN AND UNLABORED. NO S/S OF ACUTE DISTRESS OR SOB NOTED AT THIS TIME. SAFETY MEASURES IN PLACE. BED LOW, LOCKED, HOB ELEVATED, SIDE RAILS UP, CALL LIGHT WITHIN REACH. WILL CONTINUE TO MONITOR
[2018-04-01 08:00] VITALS: BP 113/74
[2018-04-01] MEDS: HYDROCHLOROTHIAZIDE 25 MG TABLET PO SCH (09:00)
[2018-04-01] MEDS: ASPIRIN 81 MG TAB.CHEW PO SCH (09:27)
[2018-04-01] MEDS: LOSARTAN POTASSIUM 50 MG TABLET PO SCH (09:28)
[2018-04-01] MEDS: METOPROLOL TARTRATE 25 MG TABLET PO SCH (09:29)
[2018-04-01 09:30] VITALS: BP 113/74
[2018-04-01] MEDS: AMLODIPINE BESYLATE 5 MG TABLET PO SCH (09:30)
[2018-04-01 09:46] LABS: BASOPHILS # (AUTO) 0.1 /CMM (0.0-0.2); BASOPHILS % (AUTO) 1.1 % (0.0-2.0); EOSINOPHILS % (AUTO) 3.1 % (0.0-6.0); HEMATOCRIT 38 % (33-45); HEMOGLOBIN 12.4 g/dL (11.5-14.8); LYMPHOCYTES # (AUTO) 1.8 /CMM (0.8-4.8); LYMPHOCYTES % (AUTO) 37.3 % (20.0-44.0); MEAN CORPUSCULAR HGB CONC 33 g/dl (31.0-36.0); MEAN CORPUSCULAR VOLUME 89 fL (82-100); MONOCYTES # (AUTO) 0.3 /CMM (0.1-1.30); MONOCYTES % (AUTO) 5.8 % (2.0-12.0); NEUTROPHILS # (AUTO) 2.5 /CMM (1.8-8.9); NEUTROPHILS % (AUTO) 52.7 % (43.0-81.0); PLATELET COUNT (AUTO) 169 /CMM (150-450); RED BLOOD CELL COUNT(AUTO) 4.28 MIL/uL (4.0-5.2); WHITE BLOOD COUNT (AUTO) 4.7 K/uL (4.3-11.0)
[2018-04-01 09:55] LABS: CALCIUM, SERUM 9.1 mg/dL (8.5-10.1); CARBON DIOXIDE 22 mmol/L (21-32); CHLORIDE 104 mmol/L (98-107); CREATININE 0.8 mg/dL (0.6-1.3); GLUCOSE 105 mg/dL (74-106); POTASSIUM 3.7 mmol/L (3.5-5.1); SODIUM SERUM 140 mmol/L (136-145); UREA NITROGEN, BLOOD 22 mg/dL (7-18)
[2018-04-01] MEDS ORDERED: ROSU10TA2 PO (10:57)
[2018-04-01] MEDS ORDERED: ASPI-1169 PO (10:57)
--- NOTE | 2018-04-01 12:25 | NUR ---
PT CLEARED BY MD FOR DISCHARGE TO HOME. PATIENT ALERT AND ORIENTED X4 , NO S/S DISTRESS, NO PAIN, NO SOB, VS ARE STABLE AND WITHIN NORMAL RANGE. IV LINE REMOVED , ID LINE REMOVED. PRESCRIPTION GIVEN TO PATIENT, EDUCATION PROVIDED , D/C INSTRUCTIONS PROVIDED. PT VERBALIZED UNDERSTANDING. HOME MEDICATIONS RETURNED TO PATIENT, ALL BELONGINGS REVIEWED AND VALUABLE LIST SIGNED. PATIENT SAFELY TRANSPORTED TO THE CAR ACCOMPANIED BY LOAN SUPERVISOR AND FAMILY MEMBER.
== END 2018-04-01 12:30 | disposition home or self-care (01) | DRG 69 ==
LOC: TELE1 04:00 → TELE 12:26 → MED 03-31 08:50
PROVIDERS: ADMIT Family Medicine; ATTEND Family Medicine
DX: G45.9 Transient cerebral ischemic attack, unspecified (principal); I21.A1 Myocardial infarction type 2; I10 Essential (primary) hypertension; E78.5 Hyperlipidemia, unspecified; E87.6 Hypokalemia; T50.2X5A Adverse effect of carbonic-anhydrase inhibitors, benzothiadiazides and other diuretics, initial encounter; R29.700 NIHSS score 0; K21.9 Gastro-esophageal reflux disease without esophagitis; I48.91 Unspecified atrial fibrillation; Y92.009 Unspecified place in unspecified non-institutional (private) residence as the place of occurrence of the external cause; Z79.01 Long term (current) use of anticoagulants
CPT/HCPCS: 36415; 70551-TC; 80048-TC; 80061-TC; 83735-TC; 84100-TC; 84439-TC; 84443-TC; 84484-TC; 85025-TC; 85730-TC; 87081-TC; 93307-TC; 93880-TC; G0378

== ENCOUNTER 2018-07-06 23:11 | Inpatient (IN) | payer MEDICARE, MEDICAID ==
[~2018-07-06] VITALS: Ht 160 cm; Wt 73.0 kg
[~2018-07-06 23:11] MED LIST changes: +ASPI-1169 PO
--- NOTE | 2018-07-06 23:40 | NUR ---
BIB SELF WITH . AAOX4. NAD NOTED, BREATHING IS EVEN AND UNLABORED. AMBULATORY. C/O LOWER BACK PAIN AND LEFT CHEST PAIN STARTED 3 DAYS AGO THAT IS WORST TODAY. PT STATES SENSATION IS ACHING AND BURNING WHICH IS AGGREVATED BY MOVEMENT AND UNABLE TO SLEEP D/T PAIN. RATES HER PAIN 5/10 PT DENIES N/V. PT TO ER BED 9. MD AT BEDSIDE FOR EVAL.
[2018-07-06] MEDS ORDERED: LORAZEPAM INJ 2 MG/ML VIAL ONE (23:49)
--- NOTE | 2018-07-06 23:53 | NUR ---
IV LINE OBTAINED ON R AC 20G. BLOOD DRAWN AND SENT TO LAB.
[2018-07-06 23:58] LABS: BASOPHILS # (AUTO) 0.1 /CMM (0.0-0.2); BASOPHILS % (AUTO) 1.1 % (0.0-2.0); EOSINOPHILS % (AUTO) 1.8 % (0.0-6.0); HEMATOCRIT 35 % (33-45); HEMOGLOBIN 12.1 g/dL (11.5-14.8); LYMPHOCYTES # (AUTO) 1.7 /CMM (0.8-4.8); LYMPHOCYTES % (AUTO) 30.1 % (20.0-44.0); MEAN CORPUSCULAR HGB CONC 34 g/dl (31.0-36.0); MEAN CORPUSCULAR VOLUME 85 fL (82-100); MONOCYTES # (AUTO) 0.4 /CMM (0.1-1.30); MONOCYTES % (AUTO) 7.3 % (2.0-12.0); NEUTROPHILS # (AUTO) 3.4 /CMM (1.8-8.9); NEUTROPHILS % (AUTO) 59.7 % (43.0-81.0); PLATELET COUNT (AUTO) 187 /CMM (150-450); RED BLOOD CELL COUNT(AUTO) 4.15 MIL/uL (4.0-5.2); WHITE BLOOD COUNT (AUTO) 5.7 K/uL (4.3-11.0)
[2018-07-07] MEDS ORDERED: LORAZEPAM INJ 2 MG/ML VIAL IV ONE
--- NOTE | 2018-07-07 00:01 | NUR ---
EKG AT BEDSIDE+
[2018-07-07 00:05] LABS: CALCIUM, SERUM 9.7 mg/dL (8.5-10.1); CARBON DIOXIDE 30 mmol/L (21-32); CHLORIDE 105 mmol/L (98-107); CREATININE 0.7 mg/dL (0.6-1.3); GLUCOSE 141 mg/dL (74-106); POTASSIUM 3.8 mmol/L (3.5-5.1); SODIUM SERUM 144 mmol/L (136-145); UREA NITROGEN, BLOOD 18 mg/dL (7-18)
[2018-07-07 00:15] LABS: D-DIMER 0.19 mg/L(FEU (0.17-0.50)
[2018-07-07 00:18] LABS: B-TYPE NATRIURETIC PEPTIDE 226 PG/ML (0-125)
--- NOTE | 2018-07-07 00:41 | NUR ---
PT IS GOING TO 112-1
[2018-07-07] MEDS ORDERED: MORPHINE SULFATE INJ 2 MG/ML DISP.SYRIN IV PRN (01:00)
[2018-07-07] MEDS ORDERED: HYDROCODONE/APAP 5/325MG 1 EACH TABLET PO PRN (01:00)
[2018-07-07] MEDS ORDERED: IBUPROFEN 600 MG TABLET PO PRN (01:00)
[2018-07-07] MEDS ORDERED: Z GUARD REMEDY 2 OZ OINT TP PRN (01:00)
[2018-07-07] MEDS ORDERED: ONDANSETRON HCL/PF 4 MG/2 ML VIAL IVP PRN (01:00)
[2018-07-07] MEDS ORDERED: MAG HYDROX/AL HYDROX/SIMETH 30 ML UDC PO PRN (01:00)
[2018-07-07] MEDS ORDERED: NITROGLYCERIN 0.4 MG/TAB BOTTLE SL PRN (01:00)
[2018-07-07] MEDS ORDERED: LORAZEPAM 1 MG TABLET PO PRN (01:00)
[2018-07-07] MEDS ORDERED: ACETAMINOPHEN 325 MG TABLET PO PRN (01:00)
[2018-07-07] MEDS ORDERED: ZOLPIDEM TARTRATE 5 MG TABLET PO PRN (01:00)
[2018-07-07] MEDS ORDERED: MAGNESIUM HYDROXIDE 30 ML UDC PO PRN (01:00)
--- NOTE | 2018-07-07 01:22 | NUR ---
REPORT GIVEN TO WALESKA PERDOMO FOR SUSAN PT GOING TO 112-1
--- NOTE | 2018-07-07 01:47 | NUR ---
GLASS SETTER NOTE PATIENT RECEIVED IN [facility] FROM ER A/O X 4. ABLE TO WALK TO BED FROM [facility] WITH MINIMAL ASSISTANCE. PATIENT GAIT STEADY. PATIENT STATES SHE USES A CANE AT HOME. PATIENT O2 SATURATION 98% STATES SHE HAD IN ER BUT IT IS BETTER NOW. PATIENT DENIES CHEST PAIN AT THIS TIME. C/O HEADACHE, OFFERED [facility]CO PATIENT ACCEPTED. PATIENT HAS 20G RAC PATENT INTACT NO S/S OF INFILTRATION. PATIENT SKIN GROSSLY INTACT, GOOD HYGIENE, PATIENT STATES SHE LIKES TO SHOWER DAILY. PATIENT ORIENTED TO UNIT AND AND INSTRUCTED ON PLAN OF CARE. PATIENT INSTRUCTED ON USE OF CALL LIGHT. NO S/S OF DISTRESS NOTED AT THIS TIME. SAFETY PRECAUTIONS IN PLACE, BED IN LOWEST LOCKED POSITION. RN WILL CONTINUE TO MONITOR.
--- NOTE | 2018-07-07 01:47 | NUR ---
PT TRANSPORTED TO [place] TO 112 WITH ACLS PROTOCOL EMT AND RN
[2018-07-07 02:00] VITALS: BP 139/78
--- NOTE | 2018-07-07 02:26 | NUR ---
AIR BRAKE TESTER NOTE CAME BACK WITH HELEN, PATIENT REFUSED AT THIS TIME. HELEN RETURNED.
[2018-07-07 04:00] VITALS: BP 125/68
--- NOTE | 2018-07-07 07:07 | NUR ---
FLOWER SHOP MANAGER NOTE PATIENT REPORT GIVEN TO AM FOR SUSAN. PATIENT STABLE NO S/S OF ACUTE DISTRESS PATIENT DENIES CHEST PAIN/SOB. PATIENT SLEPT WELL THROUGH THE NIGHT CARE RENDERED ORDERED CALL LIGHT AT HAND SAFETY PRECAUTIONS IN PLACE.
[2018-07-07] MEDS ORDERED: PANTOPRAZOLE 40 MG TABLET.DR PO SCH (07:30)
--- NOTE | 2018-07-07 07:30 | NUR ---
MS RN OPENING NOTE RECEIVED PT. A/OX4. NO ACUTE DISTRESS OR SOB NOTED. PATIENT DENIES GENERALIZED, CHEST AND EPIGASTRIC PAIN, NAUSEA AND HEAVINESS/NUMBNESS/TINGLING IN EXTREMITIES. TELE ATTACHED, SINUS RHYTHM HR 80. IV SITE R AC 20G SL C/D/I, NO SIGNS OF INFILTRATION. BED LOCKED, LOW, SIDE RAILS UPX2, PATIENT ABLE TO MAKE NEEDS KNOWN, CALL LIGHT WITHIN REACH. WILL CONTINUE TO MONITOR.
[2018-07-07 08:00] VITALS: BP 137/77
[2018-07-07] MEDS ORDERED: ASPIRIN 81 MG TAB.CHEW PO SCH (09:00)
[2018-07-07] MEDS ORDERED: LOSARTAN POTASSIUM 25 MG TABLET PO SCH (09:00)
[2018-07-07] MEDS: METOPROLOL TARTRATE 25 MG TABLET PO SCH ×2 (09:47→16:35)
--- NOTE | 2018-07-07 11:20 | NUR ---
RECEIVED ORDERS FOR CT ANGIOGRAPHY. CONSENT SIGNED. PER ELI, JUVENILE CORRECTIONS OFFICER, PATIENT'S ALLERGY TO SHELLFISH IS NOT RELEVANT BECAUSE THE CONTRAST DOES NOT CONTAIN IODINE. PER HOSPITALIST KEV RODRIGUES, NO FLUIDS REQUIRED AFTER CONTRAST. HEART RATE CURRENTLY 65BPM.
--- NOTE | 2018-07-07 11:59 | NUR ---
KEV GALEANO AND ELI MOBILE UI/UX DESIGNER AT BEDSIDE. WALESKA ANGULO CURRENTLY ADMINISTERING METOPROLOL IVP. PATIENT REPORTING ANXIETY, ATIVAN GIVEN.
[2018-07-07] MEDS ORDERED: METOPROLOL TARTRATE INJ 5 MG/5 ML AMPUL IVP ONE (12:00)
[2018-07-07] MEDS ORDERED: IV NS 0.9% 500 ML IV PRN (12:00)
[2018-07-07] MEDS ORDERED: NITROGLYCERIN 0.4 MG/TAB BOTTLE ONE (12:06)
[2018-07-07] MEDS ORDERED: METOPROLOL TARTRATE INJ 5 MG/5 ML AMPUL ONE ×3 (12:06→13:11)
[2018-07-07] MEDS ORDERED: IV NS 0.9% 250 ML IV ONE (12:06)
[2018-07-07] MEDS ORDERED: CT SWABBABLE VALVE TRANS SET 1 EA INFUS.SET MC ONE (12:06)
[2018-07-07] MEDS ORDERED: IOHEXOL-350 100 ML VIAL IV ONE (12:06)
--- NOTE | 2018-07-07 13:28 | NUR ---
RN NOTE 1200: Patient A/Ox4, aware for the procedure. HR 80, SBP 140's. given Metoprolol 5mg IVP x1, will continue to monitor. 1230: Tried to place another PIV g18, x2 attempt, unsuccessful. Will use RAC g18 per Shamir, electrical instrumentation technician. 1315: Reached the 50mg IVP Metoprolol. HR 62. Will start scanning per Shamir, tech. 1322: Nitro SL given as ordered. 1328: Done with procedure. 1328: VSS: 136/76, 76, 98% on 2LPM of O2 via NC, 22 RR.
[2018-07-07] MEDS: NITROGLYCERIN 0.4 MG/TAB BOTTLE SL ONE ×2 (15:21→15:22)
[2018-07-07 16:00] VITALS: BP 132/71
[2018-07-07 16:35] VITALS: BP 132/71
[2018-07-07] MEDS ORDERED: RIVAROXABAN 10 MG TABLET PO SCH (17:00)
--- NOTE | 2018-07-07 18:10 | NUR ---
PATIENT WANTED TO GO HOME,RELAYED CTA RESULT TO DR. BENITO AND CLEARED FOR DISCHARGE HOME,RELAYED TO KEV AVILA NP AND OK TO DC HOME.
--- NOTE | 2018-07-07 19:00 | NUR ---
PATIENT D/C'D TO HOME. D/C EDUCATION COMPLETED. PT. EDUCATED ON EMERGENCY SIGNS AND SYMPTOMS RELATED TO THE HEART AND HER MEDICATIONS. BELONGINGS CHECKLIST SIGNED. IV REMOVED AND INTACT. IN STABLE CONDITION.
[2018-07-07] MEDS ORDERED: ATORVASTATIN 40 MG TABLET PO SCH (22:00)
== END 2018-07-07 19:10 | disposition home or self-care (01) | DRG 392 ==
LOC: ER 23:11 → TELE1 07-07 00:53 → MEDSG1 07-07 10:15
PROVIDERS: ADMIT Nurse Practitioner Acute Care; ATTEND Nurse Practitioner Acute Care
DX: K21.9 Gastro-esophageal reflux disease without esophagitis (principal); D68.59 Other primary thrombophilia; F41.9 Anxiety disorder, unspecified; E78.5 Hyperlipidemia, unspecified; I10 Essential (primary) hypertension; I48.91 Unspecified atrial fibrillation; Z79.82 Long term (current) use of aspirin; I87.2 Venous insufficiency (chronic) (peripheral); Z79.01 Long term (current) use of anticoagulants
CPT/HCPCS: 36415; 71045-TC; 75574; 80048-TC; 83880; 84484-TC; 85025-TC; 85378-TC; 85652-TC; 85730-TC; 87081-TC; 93307-TC; G0378; J2060; J3490; J7040; J7050; Q9967

== ENCOUNTER 2019-04-07 22:57 | Emergency (ER) | payer MEDICARE, OTHER ==
[~2019-04-07] VITALS: Ht 165.1 cm; Wt 73.0 kg
[~2019-04-07 22:57] MED LIST changes: -IBUP-1955 PO; +OMEP40CA13 PO; -OMEP40CA37 PO
--- NOTE | 2019-04-07 23:22 | NUR ---
PATIENT CAME TO ER BED 11 C/O DIZZINESS. PATIENT STATES THAT SHE HAS HEAD PAIN AND NECK PAIN. PATIENT APPEARS ANXIOUS. C/O NAUSEA. AAOX4. NO SOB. BREATHING EVENLY AND UNLABORED ON ROOM AIR. CONNECTED TO WASHING MACHINE STRIPER.
--- NOTE | 2019-04-07 23:29 | NUR ---
BLOOD DRAWN AND SENT TO LAB
[2019-04-07] MEDS ORDERED: IV NS 0.9% 500 ML BAG IV ONE (23:30)
[2019-04-07] MEDS ORDERED: ONDANSETRON HCL/PF 4 MG/2 ML VIAL IV ONE (23:30)
[2019-04-07] MEDS ORDERED: ONDANSETRON HCL/PF 4 MG/2 ML VIAL ONE (23:30)
[2019-04-07 23:32] LABS: BASOPHILS % (AUTO) 0.8 % (0.0-2.0); EOSINOPHILS % (AUTO) 1.6 % (0.0-6.0); HEMATOCRIT 37 % (33-45); HEMOGLOBIN 12.2 g/dL (11.5-14.8); LYMPHOCYTES # (AUTO) 2.5 /CMM (0.8-4.8); LYMPHOCYTES % (AUTO) 43.8 % (20.0-44.0); MEAN CORPUSCULAR HGB CONC 34 g/dl (31.0-36.0); MEAN CORPUSCULAR VOLUME 88 fL (82-100); MONOCYTES # (AUTO) 0.4 /CMM (0.1-1.30); MONOCYTES % (AUTO) 6.3 % (2.0-12.0); NEUTROPHILS # (AUTO) 2.7 /CMM (1.8-8.9); NEUTROPHILS % (AUTO) 47.5 % (43.0-81.0); PLATELET COUNT (AUTO) 205 /CMM (150-450); RED BLOOD CELL COUNT(AUTO) 4.15 MIL/uL (4.0-5.2); WHITE BLOOD COUNT (AUTO) 5.8 K/uL (4.3-11.0)
--- NOTE | 2019-04-07 23:40 | NUR ---
XRAY AT BEDSIDE
[2019-04-07 23:48] LABS: CALCIUM, SERUM 9.4 mg/dL (8.5-10.1); CREATININE 0.9 mg/dL (0.6-1.3)
[2019-04-07 23:53] LABS: ALBUMIN 4.4 g/dL (3.4-5.0); BILIRUBIN,DIRECT 0.1 mg/dL (0.0-0.2); BILIRUBIN,TOTAL 0.2 mg/dL (0.2-1.0); TOTAL PROTEIN, SERUM 7.7 g/dL (6.4-8.2)
[2019-04-08 01:53] VITALS: BP 136/73
== END 2019-04-08 01:53 | disposition home or self-care (01) ==
LOC: ER 22:58
DX: F41.9 Anxiety disorder, unspecified (principal); R42 Dizziness and giddiness; I10 Essential (primary) hypertension; E78.5 Hyperlipidemia, unspecified; Z98.890 Other specified postprocedural states; Z88.0 Allergy status to penicillin; Z79.82 Long term (current) use of aspirin; Z79.899 Other long term (current) drug therapy
CPT/HCPCS: 36415; 71045; 80048; 80076; 84484; 85025; 93005 ×2; 96374; 99285; J2405; J7040

== ENCOUNTER 2019-10-12 19:00 | Emergency (ER) | payer MEDICARE, OTHER ==
[~2019-10-12] VITALS: Ht 162.6 cm; Wt 74.4 kg
--- NOTE | 2019-10-12 19:09 | NUR ---
DIZZINESS, NAUSEA AND VOMITING SINCE THIS AM S/P TAKING ULTRAM FOR BACK PAIN. ; PT AWAKE ALERT, -SOB. -CP, VSS, NAD NOTED, PENDING ER PROVIDER EVAL
[2019-10-12] MEDS ORDERED: ONDANSETRON HCL/PF 4 MG/2 ML VIAL IV ONE ×2 (19:30→21:30)
[2019-10-12] MEDS ORDERED: IV NS 0.9% 1,000 ML IV ONE (19:30)
[2019-10-12] MEDS ORDERED: ONDANSETRON HCL/PF 4 MG/2 ML VIAL ONE ×2 (20:11→21:33)
[2019-10-12 20:14] LABS: BASOPHILS # (AUTO) 0.1 /CMM (0.0-0.2); BASOPHILS % (AUTO) 0.6 % (0.0-2.0); EOSINOPHILS % (AUTO) 0.3 % (0.0-6.0); HEMATOCRIT 36 % (33-45); HEMOGLOBIN 11.8 g/dL (11.5-14.8); LYMPHOCYTES % (AUTO) 11.5 % (20.0-44.0); MEAN CORPUSCULAR HGB CONC 33 g/dl (31.0-36.0); MEAN CORPUSCULAR VOLUME 87 fL (82-100); MONOCYTES # (AUTO) 0.3 /CMM (0.1-1.30); MONOCYTES % (AUTO) 3.1 % (2.0-12.0); NEUTROPHILS # (AUTO) 7.7 /CMM (1.8-8.9); NEUTROPHILS % (AUTO) 84.5 % (43.0-81.0); PLATELET COUNT (AUTO) 183 /CMM (150-450); RED BLOOD CELL COUNT(AUTO) 4.07 MIL/uL (4.0-5.2); WHITE BLOOD COUNT (AUTO) 9.1 K/uL (4.3-11.0)
[2019-10-12 20:26] LABS: CALCIUM, SERUM 9.6 mg/dL (8.5-10.1); CREATININE 0.7 mg/dL (0.6-1.3); POTASSIUM 3.1 mmol/L (3.5-5.1)
[2019-10-12 20:31] LABS: ALBUMIN 4.8 g/dL (3.4-5.0); BILIRUBIN,TOTAL 0.4 mg/dL (0.2-1.0); TOTAL PROTEIN, SERUM 8.3 g/dL (6.4-8.2)
[2019-10-12] MEDS ORDERED: POTASSIUM CHLORIDE 20 MEQ TAB.PRT.SR PO ONE ×2 (21:30→21:33)
[2019-10-12] MEDS ORDERED: MORPHINE SULFATE INJ 2 MG/ML DISP.SYRIN IV ONE (21:30)
[2019-10-12] MEDS ORDERED: MORPHINE SULFATE INJ 4 MG/ML DISP.SYRIN ONE (21:33)
[2019-10-12] MEDS ORDERED: IV NS 0.9% 250 ML IV ONE (21:52)
[2019-10-12] MEDS ORDERED: IOHEXOL-300 100 ML VIAL IV ONE (21:52)
[2019-10-12] MEDS ORDERED: CT SWABBABLE VALVE TRANS SET 1 EA INFUS.SET MC ONE (21:52)
[2019-10-12] MEDS ORDERED: METOCLOPRAMIDE HCL 10 MG/2 ML VIAL IV ONE (22:00)
[2019-10-12] MEDS ORDERED: diphenhydrAMINE HCL 50 MG/ML VIAL IV ONE (22:00)
[2019-10-12] MEDS ORDERED: diphenhydrAMINE HCL 50 MG/ML VIAL ONE (22:12)
[2019-10-12] MEDS ORDERED: METOCLOPRAMIDE HCL 10 MG/2 ML VIAL ONE (22:13)
--- NOTE | 2019-10-12 23:33 | NUR ---
Patient discharged to home in stable condition. Written and verbal after care instructions given. Patient verbalizes understanding of instruction.IV removed. Catheter intact and site benign. Pressure and 4x4 applied to site. No bleeding noted.
[2019-10-12 23:40] VITALS: BP 132/75
== END 2019-10-12 23:41 | disposition home or self-care (01) ==
LOC: ER 19:04
DX: R11.10 Vomiting, unspecified (principal); T40.4X5A Adverse effect of other synthetic narcotics, initial encounter; R10.84 Generalized abdominal pain; I48.91 Unspecified atrial fibrillation; I10 Essential (primary) hypertension; Z98.890 Other specified postprocedural states; Z88.0 Allergy status to penicillin; Z79.82 Long term (current) use of aspirin; Z79.899 Other long term (current) drug therapy; Y92.89 Other specified places as the place of occurrence of the external cause
CPT/HCPCS: 36415; 74177; 80053; 83690; 84484; 85025; 93005; 96361; 96374; 96375; 96376; 99285; J1200; J2270; J2405 ×2; J2765; J7030; J7050; Q9967

== ENCOUNTER 2020-07-11 15:47 | Inpatient (IN) | payer MEDICARE, OTHER ==
[~2020-07-11] VITALS: Ht 165.1 cm; Wt 70.8 kg
[~2020-07-11 15:47] MED LIST changes: -OMEP40CA13 PO; +OMEP40CA21 PO
[2020-07-11] MEDS ORDERED: SERT-438 PO (16:05)
[2020-07-11] MEDS ORDERED: GABA-532 PO (16:05)
[2020-07-11] MEDS ORDERED: METO-357 PO (16:05)
[2020-07-11] MEDS ORDERED: OMEP1PAC7 PO (16:05)
[2020-07-11] MEDS ORDERED: MEMA10TA56 PO (16:05)
[2020-07-11] MEDS ORDERED: PITA2TAB PO (16:05)
--- NOTE | 2020-07-11 16:05 | NUR ---
THE PATIENT BIBS FOR C/O L UPPER BACK PAIN, RADIATING TO L CHEST AND L ARM. RATES PAIN 5/10. IN ROOM AIR AND DENIES SOB. RESPIRATION REGULAR AND UNLABORED. THE PATIENT IS ATTACHED TO THE MONITOR. WARM BLANKET PROVIDED FOR COMFORT. WILL CONTINUE TO MONITOR THE PATIENT.
[2020-07-11 16:17] LABS: BASOPHILS # (AUTO) 0.1 /CMM (0.0-0.2); BASOPHILS % (AUTO) 1.2 % (0.0-2.0); EOSINOPHILS % (AUTO) 1.4 % (0.0-6.0); HEMATOCRIT 35 % (33-45); HEMOGLOBIN 11.4 g/dL (11.5-14.8); LYMPHOCYTES # (AUTO) 2.1 /CMM (0.8-4.8); LYMPHOCYTES % (AUTO) 33.4 % (20.0-44.0); MEAN CORPUSCULAR HGB CONC 33 g/dl (31.0-36.0); MEAN CORPUSCULAR VOLUME 88 fL (82-100); MONOCYTES # (AUTO) 0.4 /CMM (0.1-1.30); MONOCYTES % (AUTO) 5.7 % (2.0-12.0); NEUTROPHILS # (AUTO) 3.7 /CMM (1.8-8.9); NEUTROPHILS % (AUTO) 58.3 % (43.0-81.0); PLATELET COUNT (AUTO) 197 /CMM (150-450); RED BLOOD CELL COUNT(AUTO) 3.95 MIL/uL (4.0-5.2); WHITE BLOOD COUNT (AUTO) 6.4 K/uL (4.3-11.0)
[2020-07-11 16:40] LABS: CALCIUM, SERUM 9.5 mg/dL (8.5-10.1); CARBON DIOXIDE 29 mmol/L (21-32); CHLORIDE 102 mmol/L (98-107); CREATININE 0.8 mg/dL (0.6-1.3); GLUCOSE 137 mg/dL (74-106); NT-PRO BNP 686 pg/mL (0-125); POTASSIUM 3.5 mmol/L (3.5-5.1); SODIUM SERUM 140 mmol/L (136-145); UREA NITROGEN, BLOOD 23 mg/dL (7-18)
--- NOTE | 2020-07-11 16:47 | NUR ---
[facility] CALLED CREW TEAM MEMBER PAGED.
[2020-07-11] MEDS ORDERED: ACETAMINOPHEN 325 MG TABLET PO ONE (17:00)
[2020-07-11] MEDS ORDERED: CLON0.1T PO (17:12)
[2020-07-11] MEDS ORDERED: ALEN70TA80 PO (17:12)
[2020-07-11] MEDS ORDERED: HYDROCODONE/APAP 5/325MG TABLET PO PRN (17:30)
[2020-07-11] MEDS ORDERED: MORPHINE SULFATE INJ 2 MG/ML DISP.SYRIN IV PRN (17:30)
[2020-07-11] MEDS ORDERED: MAG HYDROX/AL HYDROX/SIMETH 30 ML UDC PO PRN (17:30)
[2020-07-11] MEDS ORDERED: LORAZEPAM 1 MG TABLET PO PRN (17:30)
[2020-07-11] MEDS ORDERED: ACETAMINOPHEN 325 MG TABLET PO PRN (17:30)
[2020-07-11] MEDS ORDERED: Z GUARD REMEDY 2 OZ OINT TP PRN (17:30)
[2020-07-11] MEDS ORDERED: ONDANSETRON HCL/PF 4 MG/2 ML VIAL IVP PRN (17:30)
[2020-07-11] MEDS ORDERED: MAGNESIUM HYDROXIDE 30 ML UDC PO PRN (17:30)
[2020-07-11] MEDS ORDERED: ACETAMINOPHEN ES 500 MG TABLET ONE (17:45)
[2020-07-11] MEDS ORDERED: CLONIDINE HCL 0.1 MG TABLET PO SCH (18:00)
--- NOTE | 2020-07-11 18:06 | NUR ---
LAB CALLED PT COVID RESULT NEGATIVE (-).
--- NOTE | 2020-07-11 18:10 | NUR ---
REPORT GIVEN TO NURSE HERNANDEZ
[2020-07-11 18:20] VITALS: BP 130/66
--- NOTE | 2020-07-11 18:21 | NUR ---
THE PATIENT IS TRANSFERED IN STABLE CONDITION AND PER [facility] TO [facility].
--- NOTE | 2020-07-11 18:21 | NUR ---
ENVIRONMENT COORDINATOR NOTES [facility], PT IS ALERT AND ORIENTED, WITH COMPLAINT OF SLIGHT CHEST PAIN, NOT IN DISTRESS, TOLERATES ROOM AIR, ASSISTED TO BED, MADE COMFORTABLE, ROOM SET UP ORIENTATION PROVIDED TO PT, VERBALIZED UNDERSTANDING, VITALS TAKEN AND RECORDED, WARM BLANKETS PROVIDED, NEEDS ATTENDED.
[2020-07-11 18:58] VITALS: BP 130/66
--- NOTE | 2020-07-11 19:30 | NUR ---
RN OPENING NOTES Patient was seen awake resting in bed. Patient's A/Ox4. Patient's on room air with no respiratory distress noted. Patient's on a tele monitor with no cardiac distress noted. Patient has an IV access on her LAC G#18, which is intact & patent. Safety measures in place: Bed locked, bed alarm on, side rails up x2, and call light within reach of the patient. Will continue to monitor the patient.
[2020-07-11 20:00] VITALS: BP 121/55
--- NOTE | 2020-07-11 22:16 | NUR ---
RN NOTES Patient's daughter(Chanel) called for an update. She's available at anytime if she has to be called. Her phone number is .
[2020-07-11 22:55] VITALS: BP 121/55
[2020-07-11 22:56] VITALS: BP 121/55
[2020-07-12] VITALS: BP 110/56
[2020-07-12 04:00] VITALS: BP 124/81
[2020-07-12 06:11] LABS: EOSINOPHILS % (AUTO) 3.1 % (0.0-6.0); HEMATOCRIT 32 % (33-45); HEMOGLOBIN 10.8 g/dL (11.5-14.8); LYMPHOCYTES # (AUTO) 2.4 /CMM (0.8-4.8); MEAN CORPUSCULAR HGB CONC 33 g/dl (31.0-36.0); MEAN CORPUSCULAR VOLUME 88 fL (82-100); MONOCYTES # (AUTO) 0.3 /CMM (0.1-1.30); MONOCYTES % (AUTO) 6.5 % (2.0-12.0); NEUTROPHILS # (AUTO) 1.7 /CMM (1.8-8.9); NEUTROPHILS % (AUTO) 36.4 % (43.0-81.0); PLATELET COUNT (AUTO) 179 /CMM (150-450); RED BLOOD CELL COUNT(AUTO) 3.67 MIL/uL (4.0-5.2); WHITE BLOOD COUNT (AUTO) 4.6 K/uL (4.3-11.0)
--- NOTE | 2020-07-12 06:55 | NUR ---
RN CLOSING NOTES Patient was seen awake resting in bed. Patient's A/Ox4. Patient's on room air with no respiratory distress noted. Patient's on a tele monitor with no cardiac distress noted. Patient has an IV access on her LAC G#18, which is intact & patent. Safety measures in place: Bed locked, side rails up x2, and call light within reach of the patient. Patient refused to have the bed alarm on even though she's a fall risk. Will endorse care to day shift nurse.
[2020-07-12 07:15] LABS: CALCIUM, SERUM 9.1 mg/dL (8.5-10.1); CREATININE 0.7 mg/dL (0.6-1.3); PHOSPHORUS 3.7 mg/dL (2.5-4.9); POTASSIUM 3.5 mmol/L (3.5-5.1)
[2020-07-12] MEDS: PANTOPRAZOLE 40 MG TABLET.DR PO SCH ×2 (07:30→08:14)
[2020-07-12] MEDS: ALENDRONATE 70 MG TABLET PO SCH ×2 (07:30→08:14)
--- NOTE | 2020-07-12 07:50 | NUR ---
TUFTING MACHINE OPERATOR SINGLE NEEDLE OPENING NOTE RECEIVED PATIENT SITTING UP IN BED, EATING BREAKFAST. A/O X4. ON ROOM AIR - TOLERATING WELL. NO SOB NOTED. NO PAIN NOTED AT THIS TIME. PATIENT IS AMBULATORY - USES BATHROOM ON HER OWN BUT STATES WEAKNESS. ENCOURAGED PATIENT TO CALL FOR ASSIST. IV ACCESS TO LEFT AC #18 - SALINE LOCKED, INTACT AND PATENT. SAFETY PRECAUTIONS IN PLACE. CALL LIGHT WITHIN REACH. WILL CONTINUE TO MONITOR.
[2020-07-12 08:00] VITALS: BP 119/70
--- NOTE | 2020-07-12 08:15 | NUR ---
TRAY SERVER NOTE PATIENT WAS EATING BREAKFAST WHEN I ARRIVED ON SHIFT. NOT ABLE TO GIVE 0730 FOSAMAX - WILL ADMINISTER BEFORE LUNCH TODAY. CONTACTED PHARMACY TO CHANGE TIME TO 0600.
--- NOTE | 2020-07-12 08:20 | NUR ---
LINE DEPARTMENT SUPERVISOR NOTE DID NOT ADMINISTER METOPROLOL OR LOSARTAN - DECREASED BP. ADMINISTERED AMLODIPINE AND HYDROCHLOROTHIAZIDE.
[2020-07-12] MEDS ORDERED: METOPROLOL TARTRATE 25 MG TABLET PO SCH (09:00)
[2020-07-12] MEDS ORDERED: Medication Not On Formulary EA (Pitavastatin Calcium (Livalo) 2 MG) PO SCH (09:00)
[2020-07-12] MEDS ORDERED: AMLODIPINE PO SCH (09:00)
[2020-07-12] MEDS ORDERED: HCTZ PO SCH (09:00)
[2020-07-12] MEDS ORDERED: HYDROCHLOROTHIAZIDE 25 MG TABLET PO SCH (09:00)
[2020-07-12] MEDS ORDERED: OLMESARTAN MED PO SCH (09:00)
[2020-07-12] MEDS ORDERED: AMLODIPINE BESYLATE 5 MG TABLET PO SCH (09:00)
[2020-07-12] MEDS ORDERED: [UNRECOGNIZED DRUG - OTHER] PO SCH (09:00)
[2020-07-12] MEDS ORDERED: LOSARTAN POTASSIUM 50 MG TABLET PO SCH (09:00)
[2020-07-12] MEDS ORDERED: ATORVASTATIN 10 MG TABLET PO SCH (09:00)
[2020-07-12] MEDS ORDERED: IOHEXOL-350 100 ML VIAL IV ONE ×2 (10:32→11:18)
[2020-07-12] MEDS ORDERED: CT SWABBABLE VALVE TRANS SET 1 EA INFUS.SET MC ONE ×2 (10:32→11:18)
[2020-07-12] MEDS ORDERED: IV NS 0.9% 250 ML IV ONE ×2 (10:33→11:18)
[2020-07-12] MEDS ORDERED: NITROGLYCERIN 0.4 MG/TAB BOTTLE ONE (10:55)
[2020-07-12] MEDS ORDERED: METOPROLOL TARTRATE INJ 5 MG/5 ML AMPUL ONE ×2 (10:55→11:36)
[2020-07-12] MEDS ORDERED: NITROGLYCERIN 0.4 MG/TAB BOTTLE SL ONE (11:00)
[2020-07-12] MEDS: METOPROLOL TARTRATE INJ 5 MG/5 ML AMPUL IVP PRN ×8 (11:00→11:35)
--- NOTE | 2020-07-12 11:30 | NUR ---
REPORT GIVEN TO WALESKA GRIGGS FOR SUSAN. PT IS AAOX4, NOT IN RESPIRATORY DISTRESS, V/S STABLE, KEPT RESTED AND COMFORTABLE.
[2020-07-12 11:35] VITALS: BP 144/70
--- NOTE | 2020-07-12 11:56 | NUR ---
MANAGER PLACEMENT NOTE DID NOT ADMINISTER 1200 METOPROLOL - PATIENT RECEIVED 50MG METOPROLOL IV PUSH IN CT ANGIO. PATIENT RETURNED FROM [facility] @ 0676
[2020-07-12] MEDS ORDERED: METOPROLOL TARTRATE 50 MG TABLET PO SCH (12:00)
--- NOTE | 2020-07-12 14:20 | NUR ---
MS CLINICAL DENTAL TECHNICIAN NOTE PATIENT DISCHARGED @ 1420. STABLE, A/O X4. ON ROOM AIR - NO SOB NOTED, NO RESPIRATORY DISTRESS NOTED. NO PAIN NOTED AT THIS TIME. SKIN INTACT. EDUCATION AND EXITCARE GONE OVER WITH PATIENT - VERBALIZED UNDERSTANDING. ALL DISCHARGE EXITCARE GIVEN TO PATIENT. IV REMOVED, WRISTBAND REMOVED. ACCOMPANIED TO LOBBY IN WHEELCHAIR BY FLAKITO TATUM. PATIENT IS DRIVING HERSELF HOME - CAR IN ER PARKING LOT.
[2020-07-12] MEDS ORDERED: RIVAROXABAN 10 MG TABLET PO SCH (17:00)
== END 2020-07-12 14:30 | disposition home or self-care (01) | DRG 303 ==
LOC: ER 15:58 → TELE 17:53
PROVIDERS: ADMIT Internal Medicine; ATTEND Internal Medicine
DX: I25.10 Atherosclerotic heart disease of native coronary artery without angina pectoris (principal); G93.40 Encephalopathy, unspecified; F32.9 Major depressive disorder, single episode, unspecified; E78.5 Hyperlipidemia, unspecified; F41.9 Anxiety disorder, unspecified; G62.9 Polyneuropathy, unspecified; I10 Essential (primary) hypertension; I48.91 Unspecified atrial fibrillation; K21.9 Gastro-esophageal reflux disease without esophagitis; Z79.01 Long term (current) use of anticoagulants; Z95.5 Presence of coronary angioplasty implant and graft; Z82.49 Family history of ischemic heart disease and other diseases of the circulatory system; Z79.82 Long term (current) use of aspirin; Z20.822 Contact with and (suspected) exposure to COVID-19
CPT/HCPCS: 36415; 71045-TC; 75574; 80048-TC; 80061-TC; 83735-TC; 83880; 84100-TC; 84484-TC; 85025-TC; 87081-TC; 93307-TC; G0378; J3490; J7030; J7050; Q9967

== ENCOUNTER 2022-10-11 12:01 | Emergency (ER) | payer MEDICARE, OTHER ==
[~2022-10-11] VITALS: Ht 165.1 cm; Wt 64.0 kg
[~2022-10-11 12:01] MED LIST changes: +ALEN70TA80 PO; -ASPI-1169 PO; +CLON0.1T PO; +OMEP1PAC7 PO; -OMEP40CA21 PO; +PITA2TAB PO; -ROSU10TA2 PO
[2022-10-11] MEDS ORDERED: METOPROLOL TARTRATE INJ 5 MG/5 ML AMPUL ONE (12:08)
[2022-10-11] MEDS ORDERED: METOPROLOL TARTRATE 50 MG TABLET ONE (12:18)
[2022-10-11 12:22] LABS: BASOPHILS # (AUTO) 0.1 K/uL (0.0-0.2); BASOPHILS % (AUTO) 0.8 % (0.0-2.0); EOSINOPHILS # (AUTO) 0.1 K/uL (0.0-0.7); EOSINOPHILS % (AUTO) 1.1 % (0.0-6.0); HEMATOCRIT 38 % (33-45); HEMOGLOBIN 12.5 g/dL (11.5-14.8); LYMPHOCYTES # (AUTO) 2.3 K/uL (0.8-4.8); LYMPHOCYTES % (AUTO) 34.4 % (20.0-44.0); MEAN CORPUSCULAR HEMOGLOBIN 28 PG (26.0-33.0); MEAN CORPUSCULAR HGB CONC 33 g/dl (31.0-36.0); MEAN CORPUSCULAR VOLUME 87 fL (82-100); MONOCYTES # (AUTO) 0.5 K/uL (0.1-1.30); MONOCYTES % (AUTO) 7.5 % (2.0-12.0); NEUTROPHILS # (AUTO) 3.8 K/uL (1.8-8.9); NEUTROPHILS % (AUTO) 56.2 % (43.0-81.0); PLATELET COUNT (AUTO) 223 K/uL (150-450); RED CELL DISTRIBUTION WIDTH 15.3 % (11.5-15.0); WHITE BLOOD COUNT (AUTO) 6.8 K/uL (4.3-11.0)
[2022-10-11 12:30] LABS: CALCIUM, SERUM 9.5 mg/dL (8.5-10.1); CARBON DIOXIDE 22 mmol/L (21-32); CHLORIDE 102 mmol/L (98-107); CREATININE 0.7 mg/dL (0.6-1.3); GLUCOSE 161 mg/dL (74-106); POTASSIUM 3.1 mmol/L (3.5-5.1); SODIUM SERUM 139 mmol/L (136-145); UREA NITROGEN, BLOOD 20 mg/dL (7-18)
[2022-10-11] MEDS ORDERED: METOPROLOL SUCCINATE 50 MG TAB.SR.24H PO SCH (12:30)
[2022-10-11] MEDS ORDERED: METOPROLOL TARTRATE INJ 5 MG/5 ML AMPUL IVP ONE (12:30)
[2022-10-11 12:36] LABS: INR 1.41 (0.91-1.10); PARTIAL THROMBOPLASTIN TIME 39.8 SEC (24.3-34.3); PROTHROMBIN TIME 14.5 SECS (9.2-11.1)
[2022-10-11 12:43] LABS: NT-PRO BNP 1023 pg/mL (0-125)
[2022-10-11] MEDS ORDERED: DIPH50CA38 PO (12:58)
[2022-10-11] MEDS ORDERED: ERGO500093 PO (12:58)
[2022-10-11] MEDS ORDERED: METO-357 PO (12:58)
[2022-10-11] MEDS ORDERED: ZALE10CA PO (12:58)
[2022-10-11] MEDS ORDERED: RIVA10TA PO (12:58)
[2022-10-11] MEDS ORDERED: CYCL5.5D EACHEYE (12:58)
[2022-10-11] MEDS ORDERED: MECL-159 PO (12:58)
[2022-10-11] MEDS ORDERED: FERR325T28 PO (12:58)
[2022-10-11] MEDS ORDERED: MEMA14CA5 PO (12:58)
[2022-10-11] MEDS ORDERED: GABA300C PO (12:58)
[2022-10-11 15:14] VITALS: BP 128/79; TEMP 97.9; O2SAT 98
== END 2022-10-11 15:14 | disposition home or self-care (01) ==
LOC: ER 12:04
DX: I48.20 Chronic atrial fibrillation, unspecified (principal); I10 Essential (primary) hypertension; F41.9 Anxiety disorder, unspecified; Z79.899 Other long term (current) drug therapy; Z98.890 Other specified postprocedural states; Z88.0 Allergy status to penicillin; Z88.1 Allergy status to other antibiotic agents
CPT/HCPCS: 99285; 96374; 71045; 93005 ×2; 85025; 80048; 36415; 84484 ×2; 85730; 83880; J3490